=== PATIENT | female | born 1975 ===

== ENCOUNTER 2021-07-05 09:45 | Inpatient (IN) | payer OTHER ==
[~2021-07-05] VITALS: Ht 165.1 cm; Wt 73.9 kg
[2021-07-05] MEDS ORDERED: DAILY VALUE1 EACH PO (12:03)
== END 2021-07-08 16:44 | DRG 743 ==
LOC: OB/GYN 07-06 05:40 → O/R 07-06 05:40 → SURH 07-06 08:15 → OB/GYN 07-06 12:10
PROVIDERS: ADMIT Specialist; ATTEND Specialist
PROC: 0UT70ZZ Resection of Bilateral Fallopian Tubes, Open Approach (ICD-10-PCS; 2021-07-06)
PROC: 0UT90ZZ Resection of Uterus, Open Approach (ICD-10-PCS; principal; 2021-07-06 08:15)
DX: D25.1 Intramural leiomyoma of uterus (principal); D25.2 Subserosal leiomyoma of uterus; Z20.822 Contact with and (suspected) exposure to COVID-19

== ENCOUNTER → 2024-05-21 07:07 | Outpatient (CLI) | payer OTHER ==
[~2024-05-21 07:07] MED LIST: DAILY VALUE1 EACH PO
[2024-05-21 08:09] LABS: URINE APPEARANCE Clear; URINE BILIRRUBIN Negative (NEGATIVE); URINE BLOOD NHT; URINE COLOR Yellow; URINE GLUCOSE Negative (NEGATIVE); URINE KETONE Negative (NEGATIVE); URINE LEUKOCYTE Negative; URINE NITRATE Negative; URINE PROTEIN Negative (NEGATIVE); URINE UROBILINOGEN 0.2 E.U./dl
[2024-05-21 08:10] LABS: URINE EPITHELIAL CELLS 13.4 uL (0.0-38.8); URINE WBC 13.9 uL (0.0-23.2)
[2024-05-21 08:40] LABS: HEMATOCRIT 40.3 % (36.0-45.00); HEMOGLOBIN 13.7 g/dL (12.0-15.00); MEAN CORPUSCULAR HEMOGLOBIN 29.5 pg (27.00-32.0); MEAN CORPUSCULAR HGB CONC 33.9 g/dl (32.0-36.0); PLATELET COUNT 294 K/uL (150-450); RED BLOOD COUNT 4.64 M/uL (4.00-6.00); RED CELL DISTRIBUTION WIDTH 13.7 % (11.5-14.5)
[2024-05-21 08:47] LABS: ERYTHROCYTE SEDIMENTATION RATE 22 mm/hr
[2024-05-21 09:12] LABS: CALCIUM 8.9 mg/dL (8.5-10.1); CHOL HDL RATIO 2.2 (0-5.0); CREATININE SERUM 0.69 mg/dL (0.55-1.02); GFR 90.81; GLOBULINA 3.3 G/DL (2.4-3.5); POTASSIUM 4.35 mEq/L (3.5-5.1); T4 FREE 1.17 NG/ML (0.76-1.46); TOTAL PROTEIN 7.3 gm/dL (6.4-8.2); TSH 2.49 uIU/mL (0.358-3.74)
[2024-05-21 10:01] LABS: VITAMIN D3 25 HYDROXY 47.48 ng/ml (30-120)
== END | disposition home or self-care (01) ==
LOC: LAB 07:07
PROVIDERS: ATTEND Internal Medicine
DX: E53.8 Deficiency of other specified B group vitamins (principal); E55.9 Vitamin D deficiency, unspecified; E03.4 Atrophy of thyroid (acquired); M06.9 Rheumatoid arthritis, unspecified; E11.69 Type 2 diabetes mellitus with other specified complication; E78.00 Pure hypercholesterolemia, unspecified; Z12.11 Encounter for screening for malignant neoplasm of colon; R80.8 Other proteinuria; I11.9 Hypertensive heart disease without heart failure; D64.9 Anemia, unspecified

== ENCOUNTER 2024-09-19 07:34 | Outpatient (CLI) | payer OTHER ==
[2024-09-19 08:23] LABS: BASO % 1.1 % (0.1-1.2); EOS # 0.05 (0.04-0.54); EOS % 0.9 % (0.7-7.0); LYMPH # 1.71 (1.18-3.74); LYMPH % 31.0 % (19.3-53.1); MEAN PLATELET VOLUME 10.70 fl (9.4-12.4); MONO # 0.28 (0.24-0.82); MONO % 5.1 % (4.7-12.5); NEUT # 3.40 (1.56-6.13); NEUT % 61.7 % (34.0-71.1); RED CELL DISTRIBUTION WIDTH 13.1 % (11.6-14.4)
[2024-09-19 09:10] LABS: ALT/SGPT 26.0 U/L (12-78); AST/SGOT 18.0 U/L (15-37); BILIRUBIN TOTAL 1.16 mg/dL (0.3-1.2); BUN CREA RATIO 21.0 (7.0-25.0); CHOL HDL RATIO 2.4 (0-5.0); CREATININE SERUM 0.73 mg/dL (0.55-1.02); FREE TRIODOTIRONINE 2.52 pg/ml (2.18-3.98); GFR 84.73; GLOBULINA 3.5 G/DL (2.4-3.5); GLUCOSE FASTING 87.0 mg/dL (65-100); HDL 90.0 mg/dl (40-60); LDL 115.0 mg/dl (0-130); OSMOLALITY SERUM 281.0 MOSM/KG (275-295); TSH 1.94 uIU/mL (0.358-3.74); VLDL 9.0 (0-39)
[2024-09-19 12:36] LABS: VITAMIN D3 25 HYDROXY 50.75 ng/ml (30-120)
[2024-09-20 09:08] LABS: ESTRADIOL SERUM 82.1 pg/mL (.)
== END 2024-09-19 07:36 | disposition home or self-care (01) ==
LOC: LAB 07:34
PROVIDERS: ATTEND Obstetrics & Gynecology
DX: N95.1 Menopausal and female climacteric states (principal); E03.8 Other specified hypothyroidism; I10 Essential (primary) hypertension; E55.9 Vitamin D deficiency, unspecified; D50.8 Other iron deficiency anemias